=== PATIENT | male | born 1990 | race Caucasian/White ===

== ENCOUNTER 2017-03-19 17:00 | Emergency (ER) | payer SELFPAY | END 2017-03-19 17:55 | disposition home or self-care (01) | LOC: ER 17:00 | DX: M54.6 Pain in thoracic spine (principal); F17.200 Nicotine dependence, unspecified, uncomplicated; J45.909 Unspecified asthma, uncomplicated; K21.9 Gastro-esophageal reflux disease without esophagitis; Z88.6 Allergy status to analgesic agent | CPT/HCPCS: 96372; 99283; J2360 ==